=== PATIENT | female | born 1970 | race Caucasian/White ===

== ENCOUNTER 2021-01-13 07:29 | Emergency (ER) | payer SELFPAY ==
[~2021-01-13] VITALS: Ht 162.6 cm; Wt 127.0 kg
[~2021-01-13 07:29] MED LIST: METHYLPREDNISOLO4 M1 PO; TRAMADOL HCL50 MG PO
[2021-01-13] MEDS ORDERED: PENICILLIN V P500 MG PO (08:21)
== END 2021-01-13 08:33 | disposition home or self-care (01) ==
LOC: ED 07:29
DX: K04.7 Periapical abscess without sinus (principal); F17.200 Nicotine dependence, unspecified, uncomplicated
CPT/HCPCS: 99282